=== PATIENT | female | born 1950 | race American Indian/Alaskan Native ===

== ENCOUNTER 2021-02-28 11:36 | Outpatient (CLI) | payer MEDICARE ==
--- NOTE | 2021-02-28 14:49 | Ultrasound Report ---
Abdominal ultrasound INDICATION: Abdominal pain FINDINGS: Bowel gas limits visualization aorta and IVC. Liver appears normal. No gallbladder wall thi ckening or pericholecystic fluid. Gallstone in the gallbladder. Kidneys appear normal without hydrone phrosis. Spleen appears normal. Pancreas is not well seen. IMPRESSION: Cholelithiasis.. No pericholecystic fluid or gallbladder wall thickening. Signer Name: Eugene Huizar MD Signed: 02/28/2021 2:45 PM Workstation Name: [id number]
== END 2021-02-28 11:37 | disposition home or self-care (01) ==
LOC: US 11:36
PROVIDERS: ATTEND Internal Medicine Gastroenterology
DX: K80.20 Calculus of gallbladder without cholecystitis without obstruction (principal); K30 Functional dyspepsia
CPT/HCPCS: 76700